=== PATIENT | female | born 1945 | race Caucasian/White ===

== ENCOUNTER → 2017-11-06 | Outpatient (CLI) | payer MEDICARE, BC ==
[2016-01-07 06:26] VITALS: BP 149/77
[~2017-11-06] MED LIST: ASPIRIN E.C. 8181 M1 PO; ATENOLOL50 MG PO; BACLOFEN10 M1 PO; BENICAR HCT 12.1 TAB PO; CARDI-OMEGA1000 MG PO; CONZIP200 MG PO; COUMADIN 22.5 MG/TAB PO; COUMADIN 5MG5 MG/TAB PO; COUMADIN5 MG PO; COUMADIN7.5 MG PO; CYCLOBENZAPRINE10 MG PO; DUO-KAPS1 CAP PO; EFFER-K20 MEQ PO; FLECAINIDE ACE100 MG PO; GABAPENTIN800 MG PO; GLIPIZIDE XL5 M1 PO; HCTZ 25MG25 MG PO; HUMULIN 70 U/ML10 ML SC; KETOROLAC10 MG PO; LASIX40 M1 PO; METOCLOPRAMIDE10 MG PO; NORCO 325 MG-51 TAB PO; NOVOLIN 70/301.5 M1 SC; PREDNISONE10 M1 PO; SIMVASTATIN40 M1 PO; SIMVASTATIN80 MG PO; TRAMADOL HYDRO200 MG PO; ULTRAM 50MG TAB50 MG PO; ULTRAM50 M1 PO
== END ==
LOC: MAMMO 08:25
DX: Z12.31 Encounter for screening mammogram for malignant neoplasm of breast (principal)

== ENCOUNTER → 2017-11-06 | Outpatient (CLI) | payer MEDICARE, BC ==
[2016-01-07 06:26] VITALS: BP 149/77
== END ==
LOC: RAD 08:25 → MAMMO 09:15
DX: Z13.820 Encounter for screening for osteoporosis (principal); M85.80 Other specified disorders of bone density and structure, unspecified site

== ENCOUNTER 2018-01-15 16:13 | Emergency (ER) | payer MEDICARE, BC ==
[~2018-01-15 16:13] MED LIST changes: +GABAPENTIN TAB600 MG PO; -GABAPENTIN800 MG PO; -GLIPIZIDE XL5 M1 PO; +GLUCOTROL 5M5 MG/TAB PO
[2018-01-15] MEDS ORDERED: GLIPIZIDE10 M2 PO (16:34)
[2018-01-15] MEDS ORDERED: LOPRESSOR 550 MG/TAB PO (16:36)
[2018-01-15] MEDS ORDERED: DHA PO (16:37)
[2018-01-15 17:39] LABS: URINE APPEARANCE CLEAR; URINE COLOR YELLOW
[2018-01-15 17:40] LABS: URINE BILIRUBIN NEGATIVE (NEGATIVE); URINE BLOOD NEGATIVE (NEGATIVE); URINE KETONE 1+ (NEGATIVE); URINE LEUKOCYTE ESTERASE NEGATIVE (NEGATIVE); URINE NITRATE NEGATIVE (NEGATIVE); URINE PROTEIN(semi-quant) NEGATIVE (NEGATIVE); URINE UROBILINOGEN NORMAL (NORMAL)
[2018-01-15 18:28] VITALS: BP 109/72
== END 2018-01-15 18:29 | disposition home or self-care (01) ==
LOC: ED 16:13
PROVIDERS: Nurse Practitioner Family
DX: S29.012A Strain of muscle and tendon of back wall of thorax, initial encounter (principal); S86.912A Strain of unspecified muscle(s) and tendon(s) at lower leg level, left leg, initial encounter; M25.462 Effusion, left knee; W18.30XA Fall on same level, unspecified, initial encounter; Y92.008 Other place in unspecified non-institutional (private) residence as the place of occurrence of the external cause; M48.02 Spinal stenosis, cervical region; M48.061 Spinal stenosis, lumbar region without neurogenic claudication; E11.9 Type 2 diabetes mellitus without complications; Z79.4 Long term (current) use of insulin; Z79.82 Long term (current) use of aspirin; Z79.899 Other long term (current) drug therapy; Z79.01 Long term (current) use of anticoagulants
CPT/HCPCS: J1885

== ENCOUNTER 2018-06-16 14:58 | Emergency (ER) | payer MEDICARE, BC ==
[~2018-06-16] VITALS: Ht 160 cm; Wt 84.5 kg
[~2018-06-16 14:58] MED LIST changes: +DHA PO; +GLIPIZIDE10 M2 PO; +LOPRESSOR 550 MG/TAB PO
[2018-06-16] MEDS ORDERED: FISH OIL1000 MG PO (15:11)
[2018-06-16] MEDS ORDERED: GABAPENTIN800 MG (15:12)
[2018-06-16] MEDS ORDERED: METFORMIN ER500 MG PO (15:13)
[2018-06-16] MEDS ORDERED: POTASSIUM CHLO20 ME4 PO (15:14)
[2018-06-16] MEDS ORDERED: NORCO 325 MG-51 TA1 PO (17:31)
[2018-06-16 17:49] VITALS: BP 183/91
== END 2018-06-16 18:16 | disposition home or self-care (01) ==
LOC: ED 14:58
DX: S83.92XA Sprain of unspecified site of left knee, initial encounter (principal); S40.012A Contusion of left shoulder, initial encounter; E11.9 Type 2 diabetes mellitus without complications; I48.91 Unspecified atrial fibrillation; G89.29 Other chronic pain; M54.9 Dorsalgia, unspecified; Z95.0 Presence of cardiac pacemaker; W01.190A Fall on same level from slipping, tripping and stumbling with subsequent striking against furniture, initial encounter; Y92.009 Unspecified place in unspecified non-institutional (private) residence as the place of occurrence of the external cause; Z79.01 Long term (current) use of anticoagulants

== ENCOUNTER → 2018-11-19 | Day surgery (SDC) | payer MEDICARE, BC ==
[~2018-11-19] MED LIST changes: +FISH OIL1000 MG PO; +GABAPENTIN800 MG; +METFORMIN ER500 MG PO; +NORCO 325 MG-51 TA1 PO; +POTASSIUM CHLO20 ME4 PO
== END ==
LOC: MSO 10:14
DX: Z12.11 Encounter for screening for malignant neoplasm of colon (principal); K63.5 Polyp of colon; K57.30 Diverticulosis of large intestine without perforation or abscess without bleeding; R19.5 Other fecal abnormalities; I10 Essential (primary) hypertension; K21.9 Gastro-esophageal reflux disease without esophagitis; I48.0 Paroxysmal atrial fibrillation; E11.9 Type 2 diabetes mellitus without complications; Z88.8 Allergy status to other drugs, medicaments and biological substances; D50.0 Iron deficiency anemia secondary to blood loss (chronic); Z90.49 Acquired absence of other specified parts of digestive tract; Z95.0 Presence of cardiac pacemaker; Z79.01 Long term (current) use of anticoagulants; Z79.84 Long term (current) use of oral hypoglycemic drugs; Z79.82 Long term (current) use of aspirin
CPT/HCPCS: 00812; J2704; J7030

== ENCOUNTER → 2019-07-02 | Outpatient (CLI) | payer MEDICARE, BC | LOC: RAD 11:18 | DX: K57.30 Diverticulosis of large intestine without perforation or abscess without bleeding (principal); M43.8X5 Other specified deforming dorsopathies, thoracolumbar region; I51.7 Cardiomegaly; J90 Pleural effusion, not elsewhere classified; Z90.49 Acquired absence of other specified parts of digestive tract | CPT/HCPCS: Q9967 ==

== ENCOUNTER → 2020-12-24 | Outpatient (CLI) | payer MEDICARE, BC ==
[~2020-12-24] MED LIST changes: +LASIX20 M1 PO
== END ==
LOC: MAMMO 09:35
DX: Z12.31 Encounter for screening mammogram for malignant neoplasm of breast (principal); R92.1 Mammographic calcification found on diagnostic imaging of breast; N64.89 Other specified disorders of breast; Z95.0 Presence of cardiac pacemaker

== ENCOUNTER → 2020-12-30 | Outpatient (CLI) | payer MEDICARE, BC | LOC: MAMMO 12:15 | DX: R92.0 Mammographic microcalcification found on diagnostic imaging of breast (principal) ==

== ENCOUNTER 2021-01-17 17:00 | Emergency (ER) | payer MEDICARE, BC ==
[~2021-01-17 17:00] MED LIST changes: -LASIX20 M1 PO
[2021-01-17 17:50] LABS: BASO # 0.08 (0.02-0.10); EOS # 0.15 (0.04-0.40); EOS % 2.8 % (1.0-5.0); HEMATOCRIT 39.1 % (37.0-47.0); HEMOGLOBIN 12.8 g/dL (12.5-16.0); LYMPH# 1.25 (1.50-4.00); MEAN CELL VOLUME 85 fl (78-100); MEAN CORPUSCULAR HEMOGLOBIN 28 pg (27-31); MEAN CORPUSCULAR HGB CONC 33 g/dL (33-37); MEAN PLATELET VOLUME 10.2 fl (7.4-10.4); MONO # 0.45 (0.20-0.80); NEU # 3.43 (1.40-6.50); PLATELET COUNT 222 K/mm3 (130-400); RED CELL DISTRIBUTION WIDTH 14.6 % (11.5-14.5); WHITE BLOOD COUNT 5.4 K/mm3 (4.8-10.8)
[2021-01-17 18:16] LABS: SODIUM 138 mmol/L (136-145)
[2021-01-17 18:17] LABS: ALBUMIN 3.6 g/dL (3.4-4.8); CALCIUM 9.4 mg/dL (8.3-10.5)
[2021-01-17 18:19] LABS: TOTAL PROTEIN 6.6 g/dL (6.2-8.1)
[2021-01-17 18:20] LABS: GLUCOSE 316 mg/dL (65-105)
[2021-01-17 18:21] LABS: TOTAL BILIRUBIN 0.8 mg/dL (0.2-1.2)
[2021-01-17 18:24] LABS: AST-SGOT 18 U/L (5-34)
[2021-01-17 18:27] LABS: ALT/SGPT 23 U/L (0-55)
[2021-01-17 18:36] LABS: CARBON DIOXIDE 17 mmol/L (23-31); TROPONIN-I < 0.03 ng/mL (<0.030)
[2021-01-17 19:00] LABS: PROTHROMBIN TIME 35.5 SECONDS (9.0-12.0)
[2021-01-17] MEDS ORDERED: LASIX20 M1 PO (19:32)
[2021-01-17 20:02] VITALS: BP 179/110
== END 2021-01-17 20:02 | disposition home or self-care (01) ==
LOC: ED 17:00
PROVIDERS: Physician Assistant
DX: I11.0 Hypertensive heart disease with heart failure (principal); R79.0 Abnormal level of blood mineral; E87.70 Fluid overload, unspecified; E11.65 Type 2 diabetes mellitus with hyperglycemia; I50.9 Heart failure, unspecified; E78.5 Hyperlipidemia, unspecified; I48.91 Unspecified atrial fibrillation; Z95.0 Presence of cardiac pacemaker; Z79.82 Long term (current) use of aspirin; Z79.899 Other long term (current) drug therapy; Z79.01 Long term (current) use of anticoagulants; Z79.84 Long term (current) use of oral hypoglycemic drugs
CPT/HCPCS: J1940

== ENCOUNTER → 2021-09-23 | Outpatient (CLI) | payer MEDICARE, BC ==
[~2021-09-23] MED LIST changes: +LASIX20 M1 PO
[2021-09-23 10:10] LABS: BASO # 0.09 K/mm3 (0.02-0.10); EOS # 0.25 K/mm3 (0.04-0.40); EOS % 3.7 % (1.0-5.0); HEMOGLOBIN 14.5 g/dL (12.5-16.0); LYMPH# 1.73 K/mm3 (1.50-4.00); MEAN CELL VOLUME 83 fl (78-100); MEAN CORPUSCULAR HEMOGLOBIN 26 pg (27-31); MEAN CORPUSCULAR HGB CONC 32 g/dL (33-37); MEAN PLATELET VOLUME 10.3 fl (7.4-10.4); MONO # 0.64 K/mm3 (0.20-0.80); PLATELET COUNT 178 K/mm3 (130-400); RED BLOOD COUNT 5.56 M/mm3 (4.10-5.30); WHITE BLOOD COUNT 6.7 K/mm3 (4.8-10.8)
[2021-09-23 10:20] LABS: ALBUMIN 3.7 g/dL (3.4-4.8); POTASSIUM 4.4 mmol/L (3.5-5.1)
[2021-09-23 10:21] LABS: CALCIUM 9.7 mg/dL (8.3-10.5)
[2021-09-23 10:24] LABS: TOTAL BILIRUBIN 0.5 mg/dL (0.2-1.2)
[2021-09-23 14:24] LABS: PROTHROMBIN TIME 20.6 SECONDS (9.0-12.0)
== END ==
LOC: LAB 09:46
PROVIDERS: Family Medicine
DX: Z00.00 Encounter for general adult medical examination without abnormal findings (principal); E78.5 Hyperlipidemia, unspecified; E11.9 Type 2 diabetes mellitus without complications; E55.9 Vitamin D deficiency, unspecified; Z79.01 Long term (current) use of anticoagulants

== ENCOUNTER → 2022-01-27 | Outpatient (CLI) | payer MEDICARE, BC | LOC: LAB 15:37 | DX: Z12.31 Encounter for screening mammogram for malignant neoplasm of breast (principal); E11.9 Type 2 diabetes mellitus without complications; K21.9 Gastro-esophageal reflux disease without esophagitis; I48.91 Unspecified atrial fibrillation; I51.9 Heart disease, unspecified; G47.33 Obstructive sleep apnea (adult) (pediatric); M19.90 Unspecified osteoarthritis, unspecified site; M85.80 Other specified disorders of bone density and structure, unspecified site; M48.02 Spinal stenosis, cervical region; Z79.01 Long term (current) use of anticoagulants ==

== ENCOUNTER 2023-02-20 10:49 | Emergency (ER) | payer MEDICARE, BC ==
[~2023-02-20] VITALS: Ht 160 cm; Wt 76.4 kg
[~2023-02-20 10:49] MED LIST changes: -GABAPENTIN800 MG; +GABAPENTIN800 MG PO
[2023-02-20 11:25] LABS: BASO # 0.04 K/mm3 (0.02-0.10); EOS # 0.08 K/mm3 (0.04-0.40); EOS % 1.6 % (1.0-5.0); HEMATOCRIT 38.6 % (37.0-47.0); HEMOGLOBIN 12.3 g/dL (12.5-16.0); LYMPH# 0.84 K/mm3 (1.50-4.00); MEAN CELL VOLUME 86 fl (78-100); MEAN CORPUSCULAR HEMOGLOBIN 27 pg (27-31); MEAN CORPUSCULAR HGB CONC 32 g/dL (33-37); MEAN PLATELET VOLUME 10.4 fl (7.4-10.4); MONO # 0.36 K/mm3 (0.20-0.80); NEU # 3.61 K/mm3 (1.40-6.50); PLATELET COUNT 160 K/mm3 (130-400); RED BLOOD COUNT 4.49 M/mm3 (4.10-5.30); RED CELL DISTRIBUTION WIDTH 14.8 % (11.5-14.5); WHITE BLOOD COUNT 4.9 K/mm3 (4.8-10.8)
[2023-02-20 11:33] LABS: ALBUMIN 3.5 g/dL (3.4-4.8); POTASSIUM 4.5 mmol/L (3.5-5.1); SODIUM 140 mmol/L (136-145)
[2023-02-20 11:34] LABS: CALCIUM 9.2 mg/dL (8.3-10.5)
[2023-02-20 11:35] LABS: GLUCOSE 193 mg/dL (65-105); TOTAL PROTEIN 6.5 g/dL (6.2-8.1)
[2023-02-20 11:36] LABS: CARBON DIOXIDE 20 mmol/L (23-31)
[2023-02-20 11:37] LABS: TOTAL BILIRUBIN 1.3 mg/dL (0.2-1.2)
[2023-02-20 11:41] LABS: AST-SGOT 13 U/L (5-34)
[2023-02-20 11:42] LABS: ALT/SGPT 13 U/L (0-55)
[2023-02-20] MEDS ORDERED: COZAAR25 M1 PO (11:46)
[2023-02-20] MEDS ORDERED: NORVASC 5MG5 MG/TAB PO (11:46)
[2023-02-20] MEDS ORDERED: TOPROL XL100 MG PO (11:47)
[2023-02-20] MEDS ORDERED: FARXIGA5 MG PO (11:47)
[2023-02-20] MEDS ORDERED: OMEPRAZOLE40 MG PO (11:48)
[2023-02-20] MEDS ORDERED: OXYBUTYNIN CHLO15 MG PO (11:49)
[2023-02-20] MEDS ORDERED: PYRIDIUM200 M2 PO (11:50)
[2023-02-20] MEDS ORDERED: OZEMPIC1 MG/0.71 SQ ×2 (11:50)
[2023-02-20] MEDS ORDERED: POTASSIUM CH2 MEQ/ML PO (11:51)
[2023-02-20] MEDS ORDERED: VESICARE10 MG PO (11:51)
[2023-02-20] MEDS ORDERED: JANTOVEN3 M1 PO (11:52)
[2023-02-20] MEDS ORDERED: JANTOVEN4 MG PO (11:52)
[2023-02-20 12:10] LABS: TROPONIN-I < 0.030 ng/mL (<0.030)
[2023-02-20 12:45] VITALS: BP 150/96
[2023-02-20 13:23] LABS: PROTHROMBIN TIME 21.8 SECONDS (9.0-12.0)
[2023-02-20] MEDS ORDERED: LASIX40 M1 PO (14:17)
[2023-02-20] MEDS ORDERED: K-TAB20 MEQ PO (14:20)
[2023-02-20] MEDS ORDERED: TRAMADOL 50 MG TAB PO (14:21)
== END 2023-02-20 12:47 | disposition other institution (70) ==
LOC: ED 10:49
PROVIDERS: Physician Assistant
DX: I50.9 Heart failure, unspecified (principal); R09.02 Hypoxemia; I48.91 Unspecified atrial fibrillation; Z79.01 Long term (current) use of anticoagulants; Z79.899 Other long term (current) drug therapy; Z95.0 Presence of cardiac pacemaker
CPT/HCPCS: J1940

== ENCOUNTER → 2023-03-07 | Outpatient (CLI) | payer MEDICARE, BC ==
[~2023-03-07] MED LIST changes: +COZAAR25 M1 PO; +FARXIGA5 MG PO; +JANTOVEN3 M1 PO; +JANTOVEN4 MG PO; +K-TAB20 MEQ PO; +NORVASC 5MG5 MG/TAB PO; +OMEPRAZOLE40 MG PO; +OXYBUTYNIN CHLO15 MG PO; +OZEMPIC1 MG/0.71 SQ; +POTASSIUM CH2 MEQ/ML PO; +PYRIDIUM200 M2 PO; +TOPROL XL100 MG PO; +TRAMADOL 50 MG TAB PO; +VESICARE10 MG PO
[2023-03-07 12:52] LABS: ALBUMIN 3.7 g/dL (3.4-4.8)
[2023-03-07 12:54] LABS: CALCIUM 9.2 mg/dL (8.3-10.5)
[2023-03-07 12:55] LABS: TOTAL PROTEIN 6.9 g/dL (6.2-8.1)
[2023-03-07 12:57] LABS: TOTAL BILIRUBIN 0.5 mg/dL (0.2-1.2)
== END ==
LOC: LAB 12:31
PROVIDERS: Nurse Practitioner
DX: I50.9 Heart failure, unspecified (principal); I51.9 Heart disease, unspecified; I48.91 Unspecified atrial fibrillation

== ENCOUNTER 2023-04-06 12:46 | Outpatient (RCR) | payer MEDICARE, BC | END 2023-05-04 15:03 | disposition home or self-care (01) | LOC: OPPGERO 12:46 | DX: F43.23 Adjustment disorder with mixed anxiety and depressed mood (principal) ==

== ENCOUNTER 2023-05-08 09:00 | Outpatient (RCR) | payer MEDICARE, BC | END 2023-06-06 17:31 | disposition home or self-care (01) | LOC: OPPGERO 09:00 | DX: F43.23 Adjustment disorder with mixed anxiety and depressed mood (principal) ==

== ENCOUNTER 2023-06-07 09:00 | Outpatient (RCR) | payer MEDICARE, BC | END 2023-07-05 09:47 | disposition home or self-care (01) | LOC: OPPGERO 09:00 | DX: F43.23 Adjustment disorder with mixed anxiety and depressed mood (principal) ==

== ENCOUNTER 2023-08-06 09:23 | Outpatient (RCR) | payer MEDICARE, BC | END 2023-09-04 09:28 | disposition still patient (30) | LOC: OPPGERO 09:23 | DX: F43.23 Adjustment disorder with mixed anxiety and depressed mood (principal) ==

== ENCOUNTER → 2023-09-05 | Outpatient (CLI) | payer MEDICARE, BC ==
[2023-09-05 10:08] LABS: BASO # 0.06 K/mm3 (0.02-0.10); EOS # 0.19 K/mm3 (0.04-0.40); HEMOGLOBIN 12.3 g/dL (12.5-16.0); LYMPH# 1.52 K/mm3 (1.50-4.00); MEAN CELL VOLUME 83 fl (78-100); MEAN CORPUSCULAR HEMOGLOBIN 26 pg (27-31); MEAN CORPUSCULAR HGB CONC 32 g/dL (33-37); MEAN PLATELET VOLUME 10.1 fl (7.4-10.4); MONO # 0.84 K/mm3 (0.20-0.80); NEU # 6.68 K/mm3 (1.40-6.50); PLATELET COUNT 217 K/mm3 (130-400); RED BLOOD COUNT 4.69 M/mm3 (4.10-5.30); RED CELL DISTRIBUTION WIDTH 13.6 % (11.5-14.5); WHITE BLOOD COUNT 9.3 K/mm3 (4.8-10.8)
[2023-09-05 10:14] LABS: PROTHROMBIN TIME 20.8 SECONDS (9.0-12.0)
[2023-09-05 10:15] LABS: ALBUMIN 3.6 g/dL (3.4-4.8)
[2023-09-05 10:16] LABS: CALCIUM 9.4 mg/dL (8.3-10.5)
[2023-09-05 10:18] LABS: TOTAL PROTEIN 6.9 g/dL (6.2-8.1)
[2023-09-05 10:19] LABS: TOTAL BILIRUBIN 0.4 mg/dL (0.2-1.2)
[2023-09-05 10:47] LABS: URINE APPEARANCE CLOUDY (CLEAR); URINE COLOR YELLOW (YELLOW); URINE PROTEIN(semi-quant) TRACE (NEGATIVE)
[2023-09-05 10:48] LABS: URINE BILIRUBIN NEGATIVE (NEGATIVE); URINE BLOOD NEGATIVE (NEGATIVE); URINE GLUCOSE 2+ (NEGATIVE); URINE KETONE TRACE (NEGATIVE); URINE LEUKOCYTE ESTERASE TRACE (NEGATIVE); URINE NITRATE POSITIVE (NEGATIVE); URINE WBC >50 /hpf (0-3)
== END ==
LOC: LAB 09:41
PROVIDERS: Family Medicine
DX: Z01.89 Encounter for other specified special examinations (principal); E11.9 Type 2 diabetes mellitus without complications

== ENCOUNTER → 2023-09-07 | Outpatient (CLI) | payer MEDICARE, BC | LOC: LAB 12:25 | DX: R82.998 Other abnormal findings in urine (principal) ==

== ENCOUNTER → 2024-04-16 | Outpatient (CLI) | payer MEDICARE, BC ==
[2024-04-16 10:50] LABS: BASO # 0.05 K/mm3 (0.02-0.10); EOS # 0.18 K/mm3 (0.04-0.40); EOS % 3.7 % (1.0-5.0); HEMATOCRIT 33.7 % (37.0-47.0); HEMOGLOBIN 10.8 g/dL (12.5-16.0); LYMPH# 1.19 K/mm3 (1.50-4.00); MEAN CELL VOLUME 94 fl (78-100); MEAN CORPUSCULAR HEMOGLOBIN 30 pg (27-31); MEAN CORPUSCULAR HGB CONC 32 g/dL (33-37); MEAN PLATELET VOLUME 9.1 fl (7.4-10.4); MONO # 0.56 K/mm3 (0.20-0.80); NEU # 2.88 K/mm3 (1.40-6.50); PLATELET COUNT 153 K/mm3 (130-400); RED BLOOD COUNT 3.59 M/mm3 (4.10-5.30); RED CELL DISTRIBUTION WIDTH 18.2 % (11.5-14.5); WHITE BLOOD COUNT 4.9 K/mm3 (4.8-10.8)
[2024-04-16 10:57] LABS: ALBUMIN 3.6 g/dL (3.4-4.8)
[2024-04-16 10:58] LABS: CALCIUM 9.4 mg/dL (8.3-10.5)
[2024-04-16 11:00] LABS: TOTAL PROTEIN 6.8 g/dL (6.2-8.1)
[2024-04-16 11:01] LABS: TOTAL BILIRUBIN 0.5 mg/dL (0.2-1.2)
== END ==
LOC: LAB 10:30
PROVIDERS: Nurse Practitioner
DX: E11.9 Type 2 diabetes mellitus without complications (principal); Z92.21 Personal history of antineoplastic chemotherapy

== ENCOUNTER → 2024-08-08 | Outpatient (CLI) | payer MEDICARE, BC | LOC: LAB 12:16 | DX: R30.0 Dysuria (principal) ==